=== PATIENT | male | born 1950 | race African-American/Black ===

== ENCOUNTER 2018-08-05 15:12 | Emergency (ER) | payer OTHER ==
[~2018-08-05] VITALS: Ht 180.3 cm; Wt 83.9 kg
[~2018-08-05 15:12] MED LIST: CARV12.548 PO; LIP80 PO; LISI10TA5 PO; NITSL SL; TICA90TA PO
[2018-08-05 15:24] VITALS: BP_SYST 100
[2018-08-05] MEDS ORDERED: KETOROLAC TROMETHAMINE 30 MG VIAL IVP ONE (15:45)
[2018-08-05 16:10] LABS: HEMATOCRIT 50.4 % (36-54); HEMOGLOBIN 16.6 g/dL (14.0-18.0); MEAN CORPUSCULAR HEMOGLOBIN 31 pg (27-31); MEAN CORPUSCULAR VOLUME 93 fL (79.0-98.0); WHITE BLOOD COUNT (AUTO) 9.3 K/uL (4.8-10.8)
[2018-08-05 16:11] LABS: BASOPHILS % (AUTO) 0.5 % (0.0-2.0); CALCIUM 9.3 mg/dL (8.4-11.0); CREATININE 1.06 mg/dL (0.55-1.30); EOSINOPHILS # (AUTO) 0.2 K/uL (0.0-0.4); EOSINOPHILS % (AUTO) 2.1 % (0.0-4.0); LYMPHOCYTES # (AUTO) 1.5 K/uL (1.0-5.5); LYMPHOCYTES % (AUTO) 15.8 % (20.5-51.5); MEAN CORPUSCULAR HGB CONC 33 % (32-36); MONOCYTES # (AUTO) 0.9 K/uL (0.0-1.0); NEUTROPHILS # (AUTO) 6.7 K/uL (1.8-7.7); NEUTROPHILS % (AUTO) 71.6 % (40.0-70.0); PLATELET COUNT (AUTO) 215 K/uL (130-430); POTASSIUM 4.1 mmol/L (3.5-5.1); RED CELL DISTRIBUTION WIDTH 13.3 % (9.0-15.0)
[2018-08-05 16:17] LABS: ALBUMIN 4.2 g/dL (3.4-4.8); TOTAL BILIRUBIN 0.4 mg/dL (0.0-1.0)
[2018-08-05 16:42] VITALS: BP_SYST 100
== END 2018-08-05 16:42 | disposition home or self-care (01) ==
LOC: SED 15:12
DX: S46.001A Unspecified injury of muscle(s) and tendon(s) of the rotator cuff of right shoulder, initial encounter (principal); M19.011 Primary osteoarthritis, right shoulder; G89.29 Other chronic pain; R03.0 Elevated blood-pressure reading, without diagnosis of hypertension; X58.XXXA Exposure to other specified factors, initial encounter; Y93.89 Activity, other specified; Y92.89 Other specified places as the place of occurrence of the external cause; Y99.8 Other external cause status
CPT/HCPCS: 36415; 73030; 80053; 83605; 85025; 86431; 87040; 96374; 99284; J1885